=== PATIENT | female | born 1995 | race Caucasian/White ===

== ENCOUNTER 2019-06-02 09:01 | Emergency (ER) | payer OTHER ==
[~2019-06-02] VITALS: Ht 182.9 cm; Wt 93.0 kg
[2019-06-02 09:08] VITALS: Ht 182.9 cm; Wt 93.0 kg
[2019-06-02 09:42] VITALS: BP 130/83
== END 2019-06-02 09:44 | disposition home or self-care (01) ==
LOC: ED 09:01
DX: K12.1 Other forms of stomatitis (principal)